=== PATIENT | male | born 1985 | race African-American/Black ===

== ENCOUNTER 2022-01-23 10:48 | Emergency (ER) | payer BC ==
[~2022-01-23] VITALS: Ht 180.3 cm; Wt 82.0 kg
[2022-01-23 12:09] LABS: EOSINOPHILS % 2.7 % (0.0-5.0); HEMATOCRIT. 43.2 % (42.0-52.0); HEMOGLOBIN. 14.9 g/dL (14.0-18.0); LYMPHOCYTES % 46.8 % (20.0-50.0); MEAN CORPUSCULAR HEMOGLOBIN 30.2 pg (28.0-32.0); MEAN CORPUSCULAR VOLUME 87.4 fL (80.0-94.0); MONOCYTES % 8.9 % (2.0-8.0); NEUTROPHILS % 40.6 % (40.0-76.0); PLATELET 325 x1000/uL (130-400); RED BLOOD CELL COUNT 4.94 mill/uL (4.7-6.1); RED CELL DISTRIBUTION WIDTH 12.8 % (11.6-14.6)
[2022-01-23 12:15] LABS: CHLORIDE 109 mEq/L (98-107)
[2022-01-23 12:29] LABS: ETHANOL BLOOD < 10 mg/dL
[2022-01-23] MEDS ORDERED: ONDANSETRON HCL 4MG/2ML INJ IV STA (17:27)
[2022-01-23] MEDS ORDERED: MORPHINE SULFATE 4 MG/ML CPJ (NOT FOR IM USE) IV STA (17:27)
[2022-01-23] MEDS ORDERED: SODIUM CHLORIDE 0.9% 1,000 ML IV ONE (17:30)
[2022-01-23] MEDS ORDERED: IOHEXOL-300 100 ML BOTTLE ONE (18:32)
[2022-01-23] MEDS ORDERED: IOHEXOL-350 100 ML BOTTLE ONE (18:33)
[2022-01-23 19:48] VITALS: BP 124/87
[2022-01-23] MEDS ORDERED: ASPIRIN 81MG TABLET PO ONE (20:15)
[2022-01-23] MEDS ORDERED: ASPIRIN/ACETAMINOPHEN/CAFFEINE 250/250/65MG TABLET PO PRN (21:15)
[2022-01-23] MEDS ORDERED: DIPHENHYDRAMINE 50MG/ML VIAL IV PRN (21:15)
[2022-01-23] MEDS ORDERED: MAGNESIUM/ALUMINUM HYDROXIDE/SIMETHICONE 30ML UDC PO PRN (21:15)
[2022-01-23] MEDS ORDERED: ZOLPIDEM TARTRATE 5MG TABLET PO PRN (21:15)
[2022-01-23] MEDS ORDERED: KETOROLAC 30MG/ML VIAL IV PRN (21:15)
[2022-01-23] MEDS ORDERED: ONDANSETRON HCL 4MG/2ML INJ IV PRN (21:15)
[2022-01-23] MEDS ORDERED: MORPHINE SULFATE 4 MG/ML CPJ (NOT FOR IM USE) IV PRN (21:15)
[2022-01-23] MEDS ORDERED: DEXT 5%/0.45% NACL 1000ML 1,000 ML IV SCH (21:15)
== END 2022-01-23 20:56 | disposition left against medical advice (07) ==
LOC: ER 11:23 → EDBEDREQTM 20:08 → EDBEDREQ 20:08 → ER 20:56 → CANBEDREQ 21:17
DX: R07.89 Other chest pain (principal); R55 Syncope and collapse; R06.00 Dyspnea, unspecified; D72.819 Decreased white blood cell count, unspecified; Z20.822 Contact with and (suspected) exposure to COVID-19
CPT/HCPCS: 36415; 70450; 70496; 70498; 71045; 71275; 80053; 80320; 83880; 84484; 85025; 87426; 93005; 96361; 96374; 96375; 99285; C9803; J2270; J2405; J7030; Q9967; G0480